=== PATIENT | female | born 1995 | race Caucasian/White ===

== ENCOUNTER 2019-10-31 07:42 | Inpatient (IN) ==
[2019-10-31] MEDS ORDERED: miSOPROStoL 50 MCG TAB PO ONE (10:03)
[2019-10-31] MEDS ORDERED: OXYTOCIN 30 UNITS/500 ML BAG IV PRN (10:03)
--- NOTE | 2019-10-31 10:03 | Obstetrical Progress Note ---
Date of Service October 31, 2019 Assessment & Plan Admission and Anticipated Discharge Date Admission Date: October 31, 2019 Subjective Met pt and Mother Reviewed PNC induction for polyhydramnios FHR; CAT1 Ctx; minimal VE; /-3 EFW by Sherif ; 7-8 Lbs Plan Cytotec PO discussed plan with pt. pt agrees to plan and management Results & Data ([place]) Vital Signs (Past 12 Hours) Vital Signs Temp Pulse Resp BP 10/31/19 09:47 86 140/88 10/31/19 09:32 86 141/87 H 10/31/19 09:17 82 142/85 H 10/31/19 09:01 87 146/94 H 10/31/19 08:16 88 156/91 H 10/31/19 08:09 36.9 C 20
[2019-10-31] MEDS ORDERED: miSOPROStoL 50 MCG TAB PO STA ×2 (10:05→14:55)
[2019-10-31 10:33] LABS: Hematocrit (blood only) 30.9 % (37-47); Hemoglobin 9.8 g/dL (12.0-16.0); Mean Corpuscular Hemoglobin 26.3 pg (25-34); Mean Corpuscular Volume 82.8 fL (80-100); Mean Platelet Volume 10.9 fL (7.4-10.4); Platelet Count 244 K/uL (130-400); RDW Coefficient of Variation 14.6 % (11.5-14.5); RDW Standard Deviation 44.3 fL (36.4-46.3); Red Blood Count 3.73 M/uL (4.2-5.4); White Blood Count 5.51 K/uL (4.8-10.8)
[2019-10-31 10:43] LABS: Mean Corpuscular Hgb Conc 31.7 g/dL (32-36)
[2019-10-31] MEDS ORDERED: PENICILLIN G POTASSIUM 3 MU in DEXTROSE 5% 100 ML IV PRN (13:43)
[2019-10-31] MEDS ORDERED: PENICILLIN G POTASSIUM 6 MU in DEXTROSE 5% 250 ML IV ONE (13:50)
[2019-10-31] MEDS ORDERED: DINOPROSTONE 10 MG INSERT PV ONE (20:00)
--- NOTE | 2019-10-31 20:15 | Obstetrical Progress Note ---
Date of Service October 31, 2019 Assessment & Plan Admission and Anticipated Discharge Date Admission Date: October 31, 2019 Subjective Pt doing well FHR; CAT1 Ctx; Mi4-7 mins. mild VE; 50/-3 Pt received 1 Cytotec this Am Cervidil placed in vagina Results & Data ([facility] [place]) Vital Signs (Past 12 Hours) Vital Signs Temp Pulse Resp BP 10/31/19 19:25 36.8 C 75 18 140/80 10/31/19 15:53 36.6 C 75 20 139/87 10/31/19 11:06 36.7 C 78 20 140/89 10/31/19 10:01 87 133/84 10/31/19 09:47 86 140/88 10/31/19 09:32 86 141/87 H 10/31/19 09:17 82 142/85 H 10/31/19 09:01 87 146/94 H 10/31/19 08:16 88 156/91 H
[2019-10-31] MEDS ORDERED: miSOPROStoL 50 MCG TAB PV SCH (21:00)
[2019-11-01] MEDS ORDERED: BUTORPHANOL TARTRATE 1 MG/ML VIAL IV PRN (01:26)
[2019-11-01] MEDS ORDERED: BUTORPHANOL TARTRATE 1 MG/ML VIAL ONE (01:27)
[2019-11-01] MEDS: LACTATED RINGER'S 1,000 ML IV PRN ×2 (02:41→06:08)
[2019-11-01] MEDS ORDERED: fentaNYL citrate 100 MCG/2 ML VIAL ONE (02:47)
[2019-11-01] MEDS ORDERED: ePHEDrine sulfate 50 MG/ML AMP ONE (02:47)
[2019-11-01] MEDS ORDERED: BUPIVACAINE 0.25% 30 ML VIAL ONE (02:47)
[2019-11-01] MEDS ORDERED: fentaNYL 2MCG/ML ROPIV 1.25MG/ML 100 ML BAG EPI ONE (02:47)
--- NOTE | 2019-11-01 03:45 | Anesthesiology Consultation ---
Date of Service November 01, 2019 Assessment & Plan Chart Review Chart Review: Acceptable Risk for Labor Epidural Consults Requested none History Height/Weight Height: 5 ft 3 in Weight: 85.275 kg Allergies Allergy/AdvReac Type Severity Reaction Status Date / Time No Known Allergies Allergy Verified 10/31/19 08:04 Medications Home Medications Medication Instructions Recorded Confirmed Last Taken PNV cmb#95-ferrous fumarate-FA 1 tab PO DAILY 10/31/19 10/31/19 10/31/19 [] albuterol sulfate [Ventolin HFA] 1 inh INHALATION QID PRN 10/31/19 10/31/19 Unknown budesonide 1 inh INHALATION BID 10/31/19 10/31/19 Unknown famotidine [Pepcid] 20 mg PO DAILY 10/31/19 10/31/19 10/30/19 Active Medications Generic Name Dose Route Start Last Admin Trade Name Freq PRN Reason Stop Dose Admin Lactated Ringer's 1,000 mls @ 125 mls/hr 10/31/19 10:03 11/01/19 03:15 Lr IV 11/02/19 10:02 125 mls/hr .Q8H PRN Infusion L&D Protocol Protocol Misoprostol 50 mcg 10/31/19 21:00 11/01/19 03:32 Cytotec PV 11/30/19 20:59 Not Given BID MAG Past Medical History Medical History Asthma Use Albuterol and Plumicort Fibromyalgia No medications and no problems with it. Polyhydramnios Current RSV (respiratory syncytial virus infection) As a baby Past Family History Family History Grandmother Breast cancer Leukemia Grandmother (Paternal) Breast cancer Past Surgical History Surgical History No history of previous surgery Social History Smoking Status: Never smoker Hx Alcohol Use: No Hx Substance Use: No Physical Exam Vital Signs Last Vital Signs Temp 36.8 C 11/01/19 03:29 Pulse 85 11/01/19 03:41 Resp 18 11/01/19 03:29 BP 143/82 H 11/01/19 03:41 Pulse Ox 100 07/02/20 03:41 Testing Laboratory Results 10/31/19 10:13
[2019-11-01] MEDS ORDERED: fentaNYL 2MCG/ML ROPIV 1.25MG/ML 100 ML BAG EPI PRN (03:46)
[2019-11-01] MEDS ORDERED: NALOXONE HCL 1 MG in SODIUM CHLORIDE 0.9% 1000ML 1,000 ML IV PRN (03:46)
[2019-11-01] MEDS ORDERED: DiphenhydrAMINE HCL 50 MG/ML VIAL IV PRN (03:46)
[2019-11-01] MEDS ORDERED: ePHEDrine sulfate 50 MG/ML AMP IV PRN (03:46)
[2019-11-01] MEDS ORDERED: NALOXONE HCL 0.4 MG/1 ML VIAL/CARP IV PRN (03:46)
--- NOTE | 2019-11-01 06:15 | Obstetrical Progress Note ---
Date of Service November 01, 2019 Assessment & Plan Admission and Anticipated Discharge Date Admission Date: October 31, 2019 Subjective Pt doing well Epidural analgesia in place FHR; CAT 1 SROM; clear VE; 4/-1 Results & Data ([facility]) Vital Signs (Past 12 Hours) Vital Signs Temp Pulse Resp BP Pulse Ox 11/01/19 06:06 98 H 98 11/01/19 06:01 100 H 98 11/01/19 05:56 103 H 99 11/01/19 05:51 85 98 11/01/19 05:46 105 H 99 11/01/19 05:41 86 141/83 H 98 11/01/19 05:36 85 97 11/01/19 05:31 102 H 98 11/01/19 05:26 87 138/84 98 11/01/19 05:21 87 97 11/01/19 05:16 79 96 11/01/19 05:12 78 131/78 11/01/19 05:11 81 96 11/01/19 05:06 79 96 11/01/19 05:01 81 95 11/01/19 04:56 79 130/71 97 11/01/19 04:51 80 96 11/01/19 04:46 80 95 11/01/19 04:42 79 133/79 11/01/19 04:41 79 96 11/01/19 04:36 79 96 11/01/19 04:31 79 96 11/01/19 04:26 79 127/73 97 11/01/19 04:21 78 96 11/01/19 04:16 82 96 11/01/19 04:11 77 137/81 97 11/01/19 04:06 79 97 11/01/19 04:01 75 99 11/01/19 03:56 77 140/83 97 11/01/19 03:51 75 97 11/01/19 03:46 75 98 11/01/19 03:41 85 143/82 H 100 11/01/19 03:39 84 146/82 H 11/01/19 03:37 90 138/81 11/01/19 03:36 90 100 11/01/19 03:35 81 142/83 H 11/01/19 03:33 78 149/88 H 11/01/19 03:31 85 140/85 100 11/01/19 03:29 36.8 C 85 18 141/83 H 11/01/19 03:26 95 H 100 11/01/19 03:21 82 100 11/01/19 03:16 90 100 11/01/19 03:11 92 H 100 10/31/19 22:23 36.7 C 80 18 118/66 10/31/19 19:25 36.8 C 75 18 140/80
--- NOTE | 2019-11-01 08:15 | Obstetrical Progress Note ---
Date of Service November 01, 2019 Assessment & Plan Admission and Anticipated Discharge Date Admission Date: October 31, 2019 Physical Exam Genitourinary: Manual OB Exam: + cervical dilation 10 cm, + cervical effacement 100%, + station -1 and + amniotic fluid meconium OB Exam Monitor Tracing: + external FHT monitor used, + category I and + normal FHT variability AROM of forebag with amni-hook thin meconium fluid Results & Data ([facility]) Vital Signs (Past 12 Hours) Vital Signs Temp Pulse Resp BP Pulse Ox 11/01/19 08:11 92 H 99 11/01/19 08:06 91 H 97 11/01/19 08:01 90 97 11/01/19 07:59 20 11/01/19 07:56 87 138/77 97 11/01/19 07:51 91 H 99 11/01/19 07:46 112 H 98 11/01/19 07:42 150 H 139/100 11/01/19 07:41 148 H 98 11/01/19 07:36 99 H 98 11/01/19 07:31 92 H 98 11/01/19 07:29 20 11/01/19 07:27 98 H 137/88 11/01/19 07:26 99 H 98 11/01/19 07:21 106 H 98 11/01/19 07:16 103 H 98 11/01/19 07:11 99 H 146/89 H 98 11/01/19 07:10 37.2 C 20 11/01/19 07:06 104 H 98 11/01/19 07:01 98 H 97 11/01/19 06:56 89 140/82 98 11/01/19 06:51 97 H 98 11/01/19 06:46 98 H 98 11/01/19 06:41 94 H 140/84 98 11/01/19 06:36 101 H 98 11/01/19 06:31 91 H 97 11/01/19 06:26 91 H 136/85 97 11/01/19 06:21 90 97 11/01/19 06:16 91 H 97 11/01/19 06:12 93 H 141/86 H 11/01/19 06:11 106 H 98 11/01/19 06:06 98 H 98 11/01/19 06:01 100 H 98 11/01/19 05:56 103 H 99 07/20 05:51 85 98 07/02/20 05:46 105 H 99 07//20 05:41 86 141/83 H 98 07/0220 05:36 85 97 02 05:31 102 H 98 /0220 05:26 87 138/84 98 07/20 05:21 87 97 07/0220 05:16 79 96 0220 05:12 78 131/78 0720 05:11 81 96 07/06/21 05:06 79 96 11/01/19 05:01 81 95 11/01/19 04:56 79 130/71 97 07/0220 04:51 80 96 11/01/19 04:46 80 95 11/01/19 04:42 79 133/79 11/01/19 04:41 79 96 11/01/19 04:36 79 96 11/01/19 04:31 79 96 07 04:26 79 127/73 97 0220 04:21 78 96 11/01/19 04:16 82 96 11/01/19 04:11 77 137/81 97 /06/21 04:06 79 97 07/20 04:01 75 99 07/0220 03:56 77 140/83 97 20 03:51 75 97 /06/21 03:46 75 98 /06/21 03:41 85 143/82 H 100 07/02/20 03:39 84 146/82 H /0220 03:37 90 138/81 07/0220 03:36 90 100 07/0220 03:35 81 142/83 H 07/02/20 03:33 78 149/88 H 07/02/20 03:31 85 140/85 100 07/02/20 03:29 36.8 C 85 18 141/83 H 07/02/20 03:26 95 H 100 07/02/20 03:21 82 100 07/02/20 03:16 90 100 07/02/20 03:11 92 H 100 07/01/20 22:23 36.7 C 80 18 118/66
[2019-11-01] MEDS ORDERED: ONDANSETRON INJ 2 MG/ML 2 ML VIAL IV PRN (08:36)
[2019-11-01] MEDS ORDERED: ONDANSETRON INJ 2 MG/ML 2 ML VIAL ONE (08:39)
--- NOTE | 2019-11-01 11:21 | Delivery Summary ---
Vaginal Delivery Summary Date of Service November 01, 2019 Vaginal Delivery Summary Delivery note live female LEVY over intact perineum with delayed cord clamping. Apgars 8/9 weight pending. cord blood obtained followed by spontaneous delivery of intact placenta. No tears. EBL 200 ml. Final sponge and instrument count are correct. Mom and baby stable.
[2019-11-01] MEDS ORDERED: ALBUTEROL HFA 8 GM INHALER INH PRN (11:39)
[2019-11-01] MEDS ORDERED: DIPHTHERIA/TETANUS/PERTUSSIS 0.5 ML SYR/VIAL IM ONE (11:39)
[2019-11-01] MEDS ORDERED: ACETAMINOPHEN 325 MG TAB PO PRN (11:39)
[2019-11-01] MEDS ORDERED: HYDROCORTISONE ACETATE 25 MG SUPP PR PRN (11:39)
[2019-11-01] MEDS ORDERED: BENZOCAINE 20% AER SPR 82.5 GM CAN EXT PRN (11:39)
[2019-11-01] MEDS ORDERED: SUPERCREAM 0.870% 15 GM JAR EXT PRN (11:39)
[2019-11-01] MEDS ORDERED: bisacodyL 10 MG SUPP PR PRN (11:39)
[2019-11-01] MEDS ORDERED: OXYTOCIN 30 UNITS/500 ML BAG IV PRN (11:39)
--- NOTE | 2019-11-01 11:42 | Obstetrical Progress Note ---
Date of Service November 01, 2019 Assessment & Plan Admission and Anticipated Discharge Date Admission Date: October 31, 2019 Subjective doing fine no bleeding or spotting was out of bed to bathroom and no bleeding noted will plan for discharge and return to L&D tomorrow morning after 7AM for steroids Results & Data ([facility]) Vital Signs (Past 12 Hours) Vital Signs Temp Pulse Resp BP Pulse Ox 11/01/19 11:39 90 149/81 H 11/01/19 11:24 94 H 147/86 H 11/01/19 11:09 93 H 139/87 11/01/19 10:53 155 H 95 11/01/19 10:50 143 H 89 L 11/01/19 10:48 152 H 97 11/01/19 10:44 138 H 85 L 11/01/19 10:43 125 H 96 11/01/19 10:38 127 H 95 11/01/19 10:33 119 H 96 11/01/19 10:29 20 11/01/19 10:28 114 H 96 11/01/19 10:23 102 H 98 11/01/19 10:22 113 H 93 11/01/19 10:18 92 H 95 11/01/19 10:12 111 H 138/68 97 11/01/19 10:07 105 H 99 11/01/19 10:02 97 H 96 11/01/19 10:00 20 11/01/19 09:57 98 H 131/64 99 11/01/19 09:56 119 H 92 11/01/19 09:52 97 H 97 11/01/19 09:47 93 H 98 11/01/19 09:42 104 H 98 11/01/19 09:37 101 H 98 11/01/19 09:31 101 H 98 11/01/19 09:29 20 11/01/19 09:26 103 H 97 11/01/19 09:21 104 H 97 11/01/19 09:16 122 H 98 11/01/19 09:11 114 H 98 11/01/19 09:06 121 H 96 11/01/19 09:01 129 H 96 11/01/19 09:00 36.8 C 20 11/01/19 08:56 94 H 99 11/01/19 08:54 111 H 91 11/01/19 08:51 93 H 98 11/01/19 08:46 78 99 11/01/19 08:43 81 129/72 11/01/19 08:41 86 98 11/01/19 08:36 105 H 97 11/01/19 08:31 92 H 98 11/01/19 08:29 20 11/01/19 08:26 88 138/70 99 11/01/19 08:21 94 H 133/70 99 11/01/19 08:16 90 98 11/01/19 08:11 92 H 99 11/01/19 08:06 91 H 97 11/01/19 08:01 90 97 11/01/19 07:59 20 11/01/19 07:56 87 138/77 97 11/01/19 07:51 91 H 99 11/01/19 07:46 112 H 98 11/01/19 07:42 150 H 139/100 11/01/19 07:41 148 H 98 11/01/19 07:36 99 H 98 11/01/19 07:31 92 H 98 11/01/19 07:29 20 11/01/19 07:27 98 H 137/88 11/01/19 07:26 99 H 98 11/01/19 07:21 106 H 98 11/01/19 07:16 103 H 98 11/01/19 07:11 99 H 146/89 H 98 11/01/19 07:10 37.2 C 20 11/01/19 07:06 104 H 98 11/01/19 07:01 98 H 97 11/01/19 06:56 89 140/82 98 11/01/19 06:51 97 H 98 11/01/19 06:46 98 H 98 11/01/19 06:41 94 H 140/84 98 11/01/19 06:36 101 H 98 11/01/19 06:31 91 H 97 11/01/19 06:26 91 H 136/85 97 11/01/19 06:21 90 97 11/01/19 06:16 91 H 97 11/01/19 06:12 93 H 141/86 H 11/01/19 06:11 106 H 98 11/01/19 06:06 98 H 98 11/01/19 06:01 100 H 98 11/01/19 05:56 103 H 99 11/01/19 05:51 85 98 11/01/19 05:46 105 H 99 11/01/19 05:41 86 141/83 H 98 11/01/19 05:36 85 97 11/01/19 05:31 102 H 98 11/01/19 05:26 87 138/84 98 11/01/19 05:21 87 97 11/01/19 05:16 79 96 11/01/19 05:12 78 131/78 11/01/19 05:11 81 96 11/01/19 05:06 79 96 11/01/19 05:01 81 95 11/01/19 04:56 79 130/71 97 11/01/19 04:51 80 96 11/01/19 04:46 80 95 11/01/19 04:42 79 133/79 11/01/19 04:41 79 96 11/01/19 04:36 79 96 11/01/19 04:31 79 96 11/01/19 04:26 79 127/73 97 11/01/19 04:21 78 96 11/01/19 04:16 82 96 11/01/19 04:11 77 137/81 97 11/01/19 04:06 79 97 11/01/19 04:01 75 99 11/01/19 03:56 77 140/83 97 11/01/19 03:51 75 97 11/01/19 03:46 75 98 11/01/19 03:41 85 143/82 H 100 11/01/19 03:39 84 146/82 H 11/01/19 03:37 90 138/81 11/01/19 03:36 90 100 11/01/19 03:35 81 142/83 H 11/01/19 03:33 78 149/88 H 11/01/19 03:31 85 140/85 100 11/01/19 03:29 36.8 C 85 18 141/83 H 11/01/19 03:26 95 H 100 11/01/19 03:21 82 100 11/01/19 03:16 90 100 11/01/19 03:11 92 H 100 Laboratory Results Laboratory Results - last 72 hr 10/31/19 10:13 WBC 5.51 RBC 3.73 L Hgb 9.8 L Hct 30.9 L MCV 82.8 MCH 26.3 MCHC 31.7 L RDW Std Deviation 44.3 RDW Coeff of [place] 14.6 H Plt Count 244 MPV 10.9 H
--- NOTE | 2019-11-01 13:10 | Anesthesia Procedure Note ---
Date of Service November 01, 2019 Anesthesia Post Epidural Note Vital Signs Vital Signs: Temp Pulse Resp BP Pulse Ox 36.8 C 87 20 131/82 95 11/01/19 09:00 11/01/19 12:54 11/01/19 12:24 11/01/19 12:54 11/01/19 10:53 Notes Mental Status: alert / awake / arousable and participated in evaluation Nausea / Vomiting: adequately controlled Pain: adequately controlled Airway Patency, RR, SpO2: stable & adequate BP & HR: stable & adequate Hydration State: stable & adequate Neuraxial Anesthesia: was administered and sensory block is resolving Anesthetic Complications: no major complications apparent and Pt Satisfied with anesthetic care Epidural: Removed without complications and With tip intact
[2019-11-01] MEDS: IBUPROFEN 600 MG TAB PO PRN ×3 (13:12→21:04)
[2019-11-01] MEDS: DOCUSATE SODIUM 100 MG CAP PO SCH (21:04)
[2019-11-02] MEDS: IBUPROFEN 600 MG TAB PO PRN (04:49)
[2019-11-02 06:17] LABS: Hematocrit (blood only) 28.7 % (37-47); Hemoglobin 9.1 g/dL (12.0-16.0); Mean Corpuscular Hemoglobin 26.5 pg (25-34); Mean Corpuscular Hgb Conc 31.7 g/dL (32-36); Mean Corpuscular Volume 83.4 fL (80-100); Mean Platelet Volume 10.8 fL (7.4-10.4); Platelet Count 200 K/uL (130-400); RDW Coefficient of Variation 14.9 % (11.5-14.5); RDW Standard Deviation 45.1 fL (36.4-46.3); Red Blood Count 3.44 M/uL (4.2-5.4); White Blood Count 8.54 K/uL (4.8-10.8)
[2019-11-02] MEDS: DOCUSATE SODIUM 100 MG CAP PO SCH (07:30)
[2019-11-02] MEDS ORDERED: PRENATAL VITAMIN 1 TAB PO SCH (08:00)
[2019-11-02] MEDS ORDERED: FERROUS SULFATE 325 MG TAB PO SCH (08:00)
--- NOTE | 2019-11-02 08:06 | Obstetrical Progress Note ---
Date of Service November 02, 2019 Assessment & Plan Admission and Anticipated Discharge Date Admission Date: October 31, 2019 Subjective Patient is seen and examined. She feels well, no complaints. Ambulating without dizziness Voiding without difficulty Tolerating regular diet with out N&V Bleeding is minimal No fever/ chills/ CP/ SOB/ N&V/ Leg pain Bottle feeding without problems Vital Signs Temp Pulse Resp BP Pulse Ox 11/02/19 04:10 36.5 C 88 14 130/85 98 11/02/19 00:35 36.6 C 81 14 120/59 L 98 Lab Results 10/31/19 11/02/19 Range/Units 10:13 06:01 WBC 5.51 8.54 (4.8-10.8) K/uL RBC 3.73 L 3.44 L (4.2-5.4) M/uL Hgb 9.8 L 9.1 L (12.0-16.0) g/dL Hct 30.9 L 28.7 L (37-47) % MCV 82.8 83.4 (80-100) fL MCH 26.3 26.5 (25-34) pg MCHC 31.7 L 31.7 L (32-36) g/dL RDW Std Deviation 44.3 45.1 (36.4-46.3) fL RDW Coeff of [place] 14.6 H 14.9 H (11.5-14.5) % Plt Count 244 200 (130-400) K/uL MPV 10.9 H 10.8 H (7.4-10.4) fL PE: General: Alert, orientedx3, NAD Abd: soft, NT, fundus firm, below Umbilicus Perineum intact, Lochia rubra minimal Ext; NT, no edema AP: 23 yo s/p , ppd# 1 VSS Afebrile doing well Continue routine care All questions were answered D/C home tomorrow Results & Data ([facility]) Vital Signs (Past 12 Hours) Vital Signs Temp Pulse Resp BP Pulse Ox 11/02/19 04:10 36.5 C 88 14 130/85 98 11/02/19 00:35 36.6 C 81 14 120/59 L 98
[2019-11-02] MEDS ORDERED: FAMOTIDINE 20 MG TAB PO SCH (09:00)
[2019-11-02] MEDS ORDERED: FLUTICASONE FUROATE 100MCG 14 PUFFS/INHALER INH SCH (09:00)
[2019-11-02] MEDS ORDERED: NON-FORMULARY MEDICATION (Pnv Cmb#95-Ferrous Fumarate-Fa [Prenatal] 1 TAB) PO SCH (09:00)
--- NOTE | 2019-11-02 11:58 | Obstetrical Progress Note ---
Date of Service November 02, 2019 Assessment & Plan Admission and Anticipated Discharge Date Admission Date: October 31, 2019 Subjective Patient desires to be discharged today. No complaints Discussed when to call All questions were answered Results & Data ([facility]) Vital Signs (Past 12 Hours) Vital Signs Temp Pulse Resp BP Pulse Ox 11/02/19 07:35 36.6 C 73 18 135/91 98 11/02/19 04:10 36.5 C 88 14 130/85 98 11/02/19 00:35 36.6 C 81 14 120/59 L 98
[2019-11-02] MEDS ORDERED: bisacodyL 5 MG TABEC PO SCH (20:00)
== END 2019-11-02 13:45 | disposition home or self-care (01) | DRG 807 ==
LOC: 4S1 07:42 → 4S2 11-01 15:15

== ENCOUNTER 2022-04-12 12:50 | Inpatient (IN) ==
[2022-04-12] MEDS ORDERED: DINOPROSTONE 10 MG INSERT PV ONE (14:18)
[2022-04-12] MEDS ORDERED: LIDOCAINE 1% LOCAL 20 ML VIAL INFIL PRN (14:18)
[2022-04-12] MEDS ORDERED: OXYTOCIN 30 UNITS/500 ML BAG IV PRN (14:18)
[2022-04-12] MEDS ORDERED: PENICILLIN G POTASSIUM 6 MU in DEXTROSE 5% 250 ML IV STA (14:18)
[2022-04-12 15:34] LABS: Hematocrit (blood only) 33.9 % (34.1-44.9); Hemoglobin 11.2 g/dl (12.0-16.0); Mean Corpuscular Hemoglobin 27.8 pg (25.0-34.0); Mean Corpuscular Volume 84.1 fL (80.0-100.0); Mean Platelet Volume 11.3 fL (9.4-12.3); Platelet Count 249 K/uL (130-400); RDW Coefficient of Variation 12.8 % (11.5-14.5); RDW Standard Deviation 38.6 fL (36.4-46.3); Red Blood Count 4.03 M/uL (3.93-5.22); White Blood Count 8.25 K/ul (4.8-10.8)
[2022-04-12] MEDS ORDERED: BUTORPHANOL TARTRATE 1 MG/ML VIAL IV PRN (15:41)
[2022-04-12 15:44] LABS: Albumin Globulin Ratio 1.1 (0.9-2); Albumin Level 3.5 gm/dl (3.4-5.0); Bilirubin,Total 0.3 mg/dl (0.2-1.0); Calcium 8.2 mg/dl (8.5-10.1); Creatinine Clr Calc Pharmacy 140.9 ml/min; Est GFR (African American) 146.8 ml/min; Est GFR (Non-African American) 126.7 ml/min; Globulin 3.3 gm/dl (2.5-4.0); Potassium 3.9 mmol/L (3.5-5.1); Total Protein 6.8 gm/dl (6.0-8.3)
--- NOTE | 2022-04-12 15:48 | History & Physical Report ---
Date of Service April 12, 2022 Assessment & Plan (1) Elective induction of labor planned: (2) Post-term , 40-42 weeks of gestation: Plan: 26-year-old -0-1-1 at 40 weeks and 2 days of gestation presenting today for induction of labor, Vital signs stable, heart rate reassuring, GBS positive, Cervix unfavorable Plan to admit, monitor, labs, cervical ripening with Cervidil, Discussed what to expect during induction of labor, pain management during labor, Stadol for pain and early labor and then epidural when patient desires. All questions were answered. (3) Asthma affecting in third trimester: Admission and Anticipated Discharge Date Admission Date: April 12, 2022 History of Present Illness Primary Care Provider: Maribell Marcano DO Patient is a 26-year-old -0-1-1 at 40 weeks and 2 days of gestation who is presenting today for induction of labor for postdates. She has no complaints. She denies contractions, leakage of fluid, vaginal bleeding, headaches, change in vision, nausea vomiting. She reports good movements. Her has been complicated by, 1. Asthma during , uses inhaler daily and as needed, 2. GBS positive, 3. Depression during Allergies Allergy/AdvReac Type Severity Reaction Status Date / Time No Known Allergies Allergy Verified 10/31/19 08:04 Home Medications Medication Instructions Recorded Confirmed Type albuterol sulfate 90 mcg/actuation 1 inh inhalation QID PRN Asthma 10/31/19 04/12/22 History aerosol inhaler (Ventolin HFA) budesonide 90 mcg/actuation breath 1 inh inhalation BID 10/31/19 04/12/22 History activated powder inhaler famotidine 20 mg tablet (Pepcid) 20 mg PO DAILY 10/31/19 04/12/22 History vit no.95-ferrous 1 tab PO DAILY 10/31/19 04/12/22 History fumarate 28 mg-folic acid 800 mcg tablet () ferrous sulfate 325 mg (65 mg 325 mg PO DAILY 04/12/22 04/12/22 History iron) tablet (Iron (ferrous sulfate)) sertraline 50 mg tablet (Zoloft) 50 mg PO DAILY 04/12/22 04/12/22 History Patient History Medical History Anemia Taking Iron Anxiety and depression Zoloft 50mg Asthma Use Albuterol and Plumicort COVID January 2021 Fibromyalgia No medications and no problems with it. 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[employer] - [employer] Other Information That Helps Us Care for You: No Feels Safe at Home: Yes Safety Concerns: Feels Safe At This Time Seatbelt Use: always Assistive Devices: None OB History Full-term in 2019, 7 pound 14 ounces, no complications [employer] MACHINE History No history of STDs, no history of genital herpes, chlamydia, gonorrhea Review of Systems as per Subjective / HPI Physical Exam Constitutional: WD/WN, vitals as above well developed, + well hydrated and comfortable Gastrointestinal (Abdomen): normal bowel sounds, soft, nontender, no hepatosplenomegaly (Gravid) Genitourinary: normal external appearance OB Exam Abdomen: + vertex Manual OB Exam: + cervical dilation 1 cm, + cervical effacement 30% and + station high OB Exam Monitor Tracing: + external uterine monitor used and + category I Results & Data ([place]) Vital Signs (Past 12 Hours) Vital Signs Temp Pulse Resp BP 04/12/22 13:20 36.8 C 20 04/12/22 14:39 36.9 C 93 H 20 135/86 04/12/22 13:08 93 H 142/83 H Laboratory Results Lab Results 04/12/22 04/12/22 04/12/22 Range/Units 13:11 14:02 14:02 WBC 8.25 (4.8-10.8) K/ul RBC 4.03 (3.93-5.22) M/uL Hgb 11.2 L (12.0-16.0) g/dl Hct 33.9 L (34.1-44.9) % MCV 84.1 (80.0-100.0) fL MCH 27.8 (25.0-34.0) pg MCHC 33.0 (32.0-36.0) g/dL RDW Std Deviation 38.6 (36.4-46.3) fL RDW Coeff of [place] 12.8 (11.5-14.5) % Plt Count 249 (130-400) K/uL MPV 11.3 (9.4-12.3) fL Sodium 135 L (136-145) mmol/L Potassium 3.9 (3.5-5.1) mmol/L Chloride 105 (98-107) mmol/L Carbon Dioxide 20 L (21-32) mmol/L Anion Gap 10 (3-11) BUN 9 (6-23) mg/dl Creatinine 0.60 (0.6-1.2) mg/dl Est Cr Clr Drug Dosing 140.9 ml/min Est GFR ( Amer) 146.8 ml/min Est GFR (Non-Af Amer) 126.7 ml/min BUN/Creatinine Ratio 15.0 (10-20) Glucose 83 (70-99(Fasting)) mg/dl Calcium 8.2 L (8.5-10.1) mg/dl Total Bilirubin 0.3 (0.2-1.0) mg/dl AST 33 (13-39) U/L ALT 21 (7-52) U/L Alkaline Phosphatase 213 H (34-104) U/L Total Protein 6.8 (6.0-8.3) gm/dl Albumin 3.5 (3.4-5.0) gm/dl Globulin 3.3 (2.5-4.0) gm/dl Albumin/Globulin Ratio 1.1 (0.9-2) SARS-CoV-2, RNA, NAAT NEGATIVE (NEGATIVE)
[2022-04-12] MEDS ORDERED: PENICILLIN G POTASSIUM 3 MU in DEXTROSE 5% 100 ML IV PRN (17:18)
[2022-04-12] MEDS: LACTATED RINGER'S 1,000 ML IV PRN (20:51)
[2022-04-12] MEDS ORDERED: ePHEDrine sulfate 50 MG/ML AMP ONE (23:04)
[2022-04-12] MEDS ORDERED: fentaNYL citrate 100 MCG/2 ML VIAL ONE (23:05)
[2022-04-12] MEDS ORDERED: SODIUM CHLORIDE 0.9% INJ 10 ML VIAL ONE (23:05)
[2022-04-12] MEDS ORDERED: LIDOCAINE 2%/EPINEPHRINE 1:200,000 20 ML SDV ONE (23:05)
[2022-04-12] MEDS ORDERED: BUPIVACAINE 0.25% 30 ML VIAL ONE (23:05)
[2022-04-12] MEDS ORDERED: fentaNYL 2MCG/ML ROPIVACAINE 1.25MG/ML 100 ML BAG EPI ONE (23:06)
--- NOTE | 2022-04-12 23:26 | Obstetrical Progress Note ---
Date of Service April 12, 2022 Assessment & Plan Admission and Anticipated Discharge Date Admission Date: April 12, 2022 Subjective Patient suddenly got painful for the last 1/2 hour or so. Desires epidural for pain No VB/ LOF VSS Afebrile FHR categ I VE; 5/ 90%/ -2, large bulging bag, Cervidil is removed Continue to monitor closely Epidural for pain Results & Data ([facility]) Vital Signs (Past 12 Hours) Vital Signs Temp Pulse Resp BP Pulse Ox 04/12/22 13:20 36.8 C 20 04/12/22 23:19 92 H 100 04/12/22 23:14 102 H 98 04/12/22 23:09 95 H 99 04/12/22 23:04 95 H 99 04/12/22 23:05 100 H 92 04/12/22 22:42 100 H 130/64 04/12/22 19:00 18 04/12/22 19:00 36.7 C 18 04/12/22 19:04 102 H 131/78 04/12/22 14:39 36.9 C 93 H 20 135/86 04/12/22 13:08 93 H 142/83 H
--- NOTE | 2022-04-12 23:31 | Anesthesiology Consultation ---
Date of Service April 12, 2022 Assessment & Plan Chart Review Chart Review: Acceptable Risk for Surgery and Acceptable Risk for Labor Epidural Consults Requested none ASA ASA2 Proposed Anesthesia Anesthesia Type: Labor Epidural Risk / Benefits Reviewed With: PT / POA / Parent / Guardian, Accepts Plan and Informed Consent Obtained History Height/Weight Height: 5 ft 3 in Weight: 77.111 kg Allergies Allergy/AdvReac Type Severity Reaction Status Date / Time No Known Allergies Allergy Verified 10/31/19 08:04 Medications Home Medications Medication Instructions Recorded Confirmed Last Taken albuterol sulfate 90 mcg/actuation 1 inh inhalation QID PRN Asthma 10/31/19 04/12/22 04/11/22 aerosol inhaler (Ventolin HFA) budesonide 90 mcg/actuation breath 1 inh inhalation BID 10/31/19 04/12/22 04/11/22 activated powder inhaler famotidine 20 mg tablet (Pepcid) 20 mg PO DAILY 10/31/19 04/12/22 04/09/22 vit no.95-ferrous 1 tab PO DAILY 10/31/19 04/12/22 04/11/22 fumarate 28 mg-folic acid 800 mcg tablet () ferrous sulfate 325 mg (65 mg 325 mg PO DAILY 04/12/22 04/12/22 04/10/22 iron) tablet (Iron (ferrous sulfate)) sertraline 50 mg tablet (Zoloft) 50 mg PO DAILY 04/12/22 04/12/22 04/10/22 Active Medications Generic Name Dose Route Start Last Admin Trade Name Freq PRN Reason Stop Dose Admin Butorphanol Tartrate 1 mg 04/12/22 15:41 04/12/22 20:53 Butorphanol Tartrate 1 Mg/Ml Vial IV 05/12/22 15:40 1 mg Q3HWA PRN Administration Pain Lactated Ringer's 1,000 mls @ 150 mls/hr 04/12/22 14:18 04/12/22 23:00 Lr IV 04/14/22 14:17 999 mls/hr .[id number] PRN Infusion L&D Protocol Protocol NPO Date Last Intake of Fluids: 04/12/22 Time Last Intake of Fluids: 23:00 Date Last Intake of Solids: 04/12/22 Time Last Intake of Solids: 11:30 Past Medical History Medical History Anemia Taking Iron Anxiety and depression Zoloft 50mg Asthma Use Albuterol and Plumicort COVID January 2021 Fibromyalgia No medications and no problems with it. Patient denies Polyhydramnios previous RSV (respiratory syncytial virus infection) As a baby Vitamin B 12 deficiency Exercise / Class Metabolic Activity II 4-5 Yardwork/Stairs/Walk up hill Past Family History Family History Grandmother Breast cancer Leukemia Grandmother (Paternal) Breast cancer Past Surgical History Surgical History No history of previous surgery Past Anesthesia History No Hx of Anesthesia Complications and No Family Hx of Anesthesia Complications History of PONV No Hx of PONV and No Hx of Motion Sickness Social History Smoking Status: Never smoker Hx Alcohol Use: No Hx Substance Use: No Physical Exam Vital Signs Last Vital Signs Temp 36.7 C 04/12/22 19:00 Pulse 91 H 04/12/22 23:24 Resp 18 04/12/22 19:00 BP 130/64 04/12/22 22:42 Pulse Ox 99 04/12/22 23:24 ENMT Mouth: + small oral opening; no TMJ abnormality Thyromental Distance: > or= 3.5 Finger Breadths Mallampati Class: III Neck normal visual inspection and trachea midline; neck extension not limited Respiratory normal respiratory effort Auscultation: lungs clear to auscultation bilaterally Cardiovascular Rate/Rhythm: regular rate and regular rhythm Heart Sounds: no murmur Musculoskeletal Spine: normal cervical ROM Extremities: full ROM of extremities Neurologic moves all extremities Psychiatric Orientation: alert and oriented x 3 Testing Laboratory Results 04/12/22 14:02 04/12/22 14:02
[2022-04-12] MEDS ORDERED: NALOXONE HCL 1 MG in SODIUM CHLORIDE 0.9% 1000ML 1,000 ML IV PRN (23:52)
[2022-04-12] MEDS ORDERED: ePHEDrine sulfate 50 MG/ML AMP IV PRN (23:52)
[2022-04-12] MEDS ORDERED: NALBUPHINE HCL INJ 10 MG/ML AMP IV PRN (23:52)
[2022-04-12] MEDS ORDERED: ONDANSETRON INJ 2 MG/ML 2 ML VIAL IV PRN (23:52)
[2022-04-12] MEDS ORDERED: NALOXONE HCL 0.4 MG/1 ML VIAL/CARP IV PRN (23:52)
[2022-04-12] MEDS ORDERED: fentaNYL 2MCG/ML ROPIVACAINE 1.25MG/ML 100 ML BAG EPI PRN (23:52)
[2022-04-12] MEDS ORDERED: diphenhydrAMINE 50 MG/ML VIAL IV PRN (23:52)
[2022-04-12] MEDS ORDERED: METOCLOPRAMIDE HCL 20 MG in SODIUM CHLORIDE 0.9% 50 ML IV PRN (23:52)
[2022-04-13] MEDS: LACTATED RINGER'S 1,000 ML IV PRN (00:25)
--- NOTE | 2022-04-13 01:25 | Obstetrical Progress Note ---
Date of Service April 13, 2022 Assessment & Plan Admission and Anticipated Discharge Date Admission Date: April 12, 2022 Subjective Patient is comfortable now, received epidural for pain 2ND dose of PCN has been given VE; large bulging bag, AROM'ed clear fluid, cervix 10/ 100%/ 0, LOP FHR categ I with short lasting variable decels with ctxs, moderate variability and accels present Continue to monitor closely Rt lateral position to hlep for internal rotation of head Anticipe Results & Data ([facility]) Vital Signs (Past 12 Hours) Vital Signs Temp Pulse Resp BP Pulse Ox 04/13/22 01:19 96 H 98 04/13/22 01:14 77 96 04/13/22 01:12 77 110/58 L 94 04/13/22 01:09 78 97 04/13/22 01:04 106 H 98 04/13/22 01:00 18 04/13/22 01:00 18 04/13/22 00:59 91 H 96 04/13/22 00:57 97 H 130/64 04/13/22 00:54 87 96 04/13/22 00:49 111 H 96 04/13/22 00:44 91 H 97 04/13/22 00:42 88 121/71 04/13/22 00:30 18 04/13/22 00:30 18 04/13/22 00:39 92 H 98 04/13/22 00:34 89 98 04/13/22 00:29 99 H 98 04/13/22 00:24 96 H 98 04/13/22 00:23 92 H 128/73 04/13/22 00:19 84 126/86 97 04/13/22 00:14 85 121/69 98 04/13/22 00:00 18 04/13/22 00:00 18 04/13/22 00:09 86 98 04/13/22 00:08 85 134/73 04/13/22 00:04 98 04/13/22 00:04 88 04/13/22 00:04 89 132/82 04/12/22 23:59 93 H 136/76 97 04/12/22 23:54 88 98 04/12/22 23:53 92 H 126/66 04/12/22 23:51 89 119/62 04/12/22 23:49 94 H 129/63 96 04/12/22 23:47 91 H 120/60 04/12/22 23:45 94 H 18 130/74 04/12/22 23:44 90 97 04/12/22 23:39 88 97 04/12/22 23:34 107 H 98 04/12/22 23:29 92 H 99 04/12/22 23:24 91 H 99 04/12/22 23:19 92 H 100 04/12/22 23:14 102 H 98 04/12/22 23:09 95 H 99 04/12/22 23:04 95 H 99 04/12/22 23:05 100 H 92 04/12/22 22:42 100 H 130/64 04/12/22 19:00 18 04/12/22 19:00 36.7 C 18 04/12/22 19:04 102 H 131/78 04/12/22 14:39 36.9 C 93 H 20 135/86
[2022-04-13] MEDS ORDERED: ALBUTEROL HFA 8 GM INHALER INH PRN (01:47)
[2022-04-13] MEDS ORDERED: OXYTOCIN 30 UNITS/500 ML BAG IV PRN ×2 (02:03→03:30)
[2022-04-13] MEDS ORDERED: HYDROCORTISONE ACETATE 25 MG SUPP PR PRN (03:30)
[2022-04-13] MEDS ORDERED: bisacodyL 10 MG SUPP PR PRN (03:30)
[2022-04-13] MEDS ORDERED: BENZOCAINE 20% AER SPR 82.5 GM CAN EXT PRN (03:30)
[2022-04-13] MEDS ORDERED: DIPHTHERIA/TETANUS/PERTUSSIS 0.5 ML SYR/VIAL IM ONE (03:30)
[2022-04-13] MEDS ORDERED: ACETAMINOPHEN 325 MG TAB PO PRN (03:30)
--- NOTE | 2022-04-13 07:33 | Delivery Summary ---
Vaginal Delivery Summary Date of Service April 13, 2022 Vaginal Delivery Summary Late entry due to [place] being in progress. Patient was found to be fully dilated and desire to push. She pushed for about 20 minutes and delivered the head without difficulty. Unable to deliver ant erior/right shoulder with minimal traction. Nursing team was notified for shoulder dystocia. Patient's thighs were hyperflexed with Candis maneuver and suprapubic pressure I was able to deliver posterior/left shoulder without difficulty. There was a nuchal and body cord it was reduced and the baby was handed off to the mother. The time between delivery head and the whole body was less than 1 minutes. The mouth and nose were suctioned. The cord was clamped times and cut. Baby was vigorously moving and crying. And then the vagina perineum were checked for lacerations. There was a small first-degree laceration at 5 position at the hymen. It was repaired with 3-0 Vicryl and excellent hemostasis was achieved. Placenta was found to be in the vagina, delivered spontaneously as intact and complete. Uterus was explored and found to be empty, lower segment was cleared of all clots and debris's, fundus was firm and EBL was 200 mm. Mom and baby tolerated procedure well. Baby was a viable male infant, delivered at 0 2:15 AM, Apgars were 7/9, the weight was 377 8 g. The sponge needle instrument count was correct x2. No complications happened other than mild shoulder dystocia. I was present during whole procedure.
[2022-04-13] MEDS ORDERED: PRENATAL VITAMIN 1 TAB PO SCH (08:00)
[2022-04-13] MEDS: PRENATAL VITAMIN 1 TAB PO SCH (08:58)
[2022-04-13] MEDS: FERROUS SULFATE 325 MG TAB PO SCH (08:58)
[2022-04-13] MEDS: FAMOTIDINE 20 MG TAB PO SCH (08:58)
[2022-04-13] MEDS: DOCUSATE SODIUM 100 MG CAP PO SCH ×2 (08:58→21:12)
[2022-04-13] MEDS: SERTRALINE HCL 50 MG TABLET PO SCH (08:59)
[2022-04-13] MEDS: FLUTICASONE FUROATE 200MCG 14 PUFFS/INHALER INH SCH (09:00)
[2022-04-13] MEDS: IBUPROFEN 600 MG TAB PO PRN ×2 (09:02→15:55)
--- NOTE | 2022-04-13 09:53 | Anesthesia Procedure Note ---
Date of Service April 13, 2022 Anesthesia Post Epidural Note Vital Signs Vital Signs: Temp Pulse Resp BP Pulse Ox O2 Del Method 98.1 F 91 H 18 136/87 97 04/13/22 07:30 04/13/22 07:30 04/13/22 07:30 04/13/22 07:30 04/13/22 07:30 04/13/22 07:30 Pain Intensity Bilateral Abdomen: Pain Intensity: 5 Notes Mental Status: alert / awake / arousable and participated in evaluation Nausea / Vomiting: adequately controlled Pain: adequately controlled Airway Patency, RR, SpO2: stable & adequate BP & HR: stable & adequate Hydration State: stable & adequate Neuraxial Anesthesia: was administered and sensory block is resolving Anesthetic Complications: no major complications apparent and Pt Satisfied with anesthetic care Epidural: Removed without complications and With tip intact
[2022-04-14] MEDS: IBUPROFEN 600 MG TAB PO PRN ×2 (01:18→08:06)
[2022-04-14 07:22] LABS: Hematocrit (blood only) 32.5 % (34.1-44.9); Hemoglobin 10.5 g/dl (12.0-16.0); Mean Corpuscular Hemoglobin 27.6 pg (25.0-34.0); Mean Corpuscular Hgb Conc 32.3 g/dL (32.0-36.0); Mean Corpuscular Volume 85.5 fL (80.0-100.0); Mean Platelet Volume 10.6 fL (9.4-12.3); Platelet Count 206 K/uL (130-400); RDW Standard Deviation 39.9 fL (36.4-46.3); White Blood Count 7.29 K/ul (4.8-10.8)
[2022-04-14] MEDS: FERROUS SULFATE 325 MG TAB PO SCH (08:06)
[2022-04-14] MEDS: DOCUSATE SODIUM 100 MG CAP PO SCH (08:06)
[2022-04-14] MEDS: PRENATAL VITAMIN 1 TAB PO SCH (08:06)
[2022-04-14] MEDS: FAMOTIDINE 20 MG TAB PO SCH (08:06)
[2022-04-14] MEDS: FLUTICASONE FUROATE 200MCG 14 PUFFS/INHALER INH SCH (08:08)
[2022-04-14] MEDS: SERTRALINE HCL 50 MG TABLET PO SCH (08:51)
--- NOTE | 2022-04-14 09:08 | Obstetrical Progress Note ---
Date of Service April 14, 2022 Assessment & Plan Admission and Anticipated Discharge Date Admission Date: April 12, 2022 Subjective Patient is seen and examined. She feels well, no complaints. Ambulating without dizziness Voiding without difficulty Tolerating regular diet with out N&V Bleeding is minimal No fever/ chills/ CP/ SOB/ N&V/ Leg pain Breast feeding without problems Vital Signs Temp Pulse Resp BP Pulse Ox O2 Del Method 04/14/22 08:10 37 C 75 20 126/83 96 Room Air 04/13/22 23:30 36.5 C 76 18 119/74 Room Air Lab Results 04/12/22 04/12/22 04/12/22 Range/Units 13:11 14:02 14:02 WBC 8.25 (4.8-10.8) K/ul RBC 4.03 (3.93-5.22) M/uL Hgb 11.2 L (12.0-16.0) g/dl Hct 33.9 L (34.1-44.9) % MCV 84.1 (80.0-100.0) fL MCH 27.8 (25.0-34.0) pg MCHC 33.0 (32.0-36.0) g/dL RDW Std Deviation 38.6 (36.4-46.3) fL RDW Coeff of [place] 12.8 (11.5-14.5) % Plt Count 249 (130-400) K/uL MPV 11.3 (9.4-12.3) fL Sodium 135 L (136-145) mmol/L Potassium 3.9 (3.5-5.1) mmol/L Chloride 105 (98-107) mmol/L Carbon Dioxide 20 L (21-32) mmol/L Anion Gap 10 (3-11) BUN 9 (6-23) mg/dl Creatinine 0.60 (0.6-1.2) mg/dl Est Cr Clr Drug Dosing 140.9 ml/min Est GFR ( Amer) 146.8 ml/min Est GFR (Non-Af Amer) 126.7 ml/min BUN/Creatinine Ratio 15.0 (10-20) Glucose 83 (70-99(Fasting)) mg/dl Calcium 8.2 L (8.5-10.1) mg/dl Total Bilirubin 0.3 (0.2-1.0) mg/dl AST 33 (13-39) U/L ALT 21 (7-52) U/L Alkaline Phosphatase 213 H (34-104) U/L Total Protein 6.8 (6.0-8.3) gm/dl Albumin 3.5 (3.4-5.0) gm/dl Globulin 3.3 (2.5-4.0) gm/dl Albumin/Globulin Ratio 1.1 (0.9-2) SARS-CoV-2, RNA, NAAT NEGATIVE (NEGATIVE) 04/14/22 Range/Units 06:56 WBC 7.29 (4.8-10.8) K/ul RBC 3.80 L (3.93-5.22) M/uL Hgb 10.5 L (12.0-16.0) g/dl Hct 32.5 L (34.1-44.9) % MCV 85.5 (80.0-100.0) fL MCH 27.6 (25.0-34.0) pg MCHC 32.3 (32.0-36.0) g/dL RDW Std Deviation 39.9 (36.4-46.3) fL RDW Coeff of [place] 13.0 (11.5-14.5) % Plt Count 206 (130-400) K/uL MPV 10.6 (9.4-12.3) fL Sodium (136-145) mmol/L Potassium (3.5-5.1) mmol/L Chloride (98-107) mmol/L Carbon Dioxide (21-32) mmol/L Anion Gap (3-11) BUN (6-23) mg/dl Creatinine (0.6-1.2) mg/dl Est Cr Clr Drug Dosing ml/min Est GFR ( Amer) ml/min Est GFR (Non-Af Amer) ml/min BUN/Creatinine Ratio (10-20) Glucose (70-99(Fasting)) mg/dl Calcium (8.5-10.1) mg/dl Total Bilirubin (0.2-1.0) mg/dl AST (13-39) U/L ALT (7-52) U/L Alkaline Phosphatase (34-104) U/L Total Protein (6.0-8.3) gm/dl Albumin (3.4-5.0) gm/dl Globulin (2.5-4.0) gm/dl Albumin/Globulin Ratio (0.9-2) SARS-CoV-2, RNA, NAAT (NEGATIVE) PE: General: Alert, orientedx3, NAD Abd: soft, NT, fundus firm, below Umbilicus Perineum intact, Lochia rubra minimal Ext; NT, no edema AP: 26 yo s/p , ppd# 1 VSS Afebrile doing well Continue routine care All questions were answered Desires d/c today D/C home , f/u in office Results & Data ([facility]) Vital Signs (Past 12 Hours) Vital Signs Temp Pulse Resp BP Pulse Ox O2 Del Method 04/14/22 08:10 37 C 75 20 126/83 96 Room Air 04/13/22 23:30 36.5 C 76 18 119/74 Room Air
[2022-04-14] MEDS ORDERED: bisacodyL 5 MG TABEC PO SCH (20:00)
== END 2022-04-14 13:35 | disposition home or self-care (01) | DRG 807 ==
LOC: 4S1 12:50 → 4E2 04-13 05:32

== ENCOUNTER 2025-02-18 07:48 | Inpatient (IN) ==
[2025-02-18] MEDS ORDERED: ACETAMINOPHEN 325 MG TAB PO PRN ×2 (08:29→22:58)
[2025-02-18] MEDS ORDERED: OXYTOCIN 30 UNITS/NSS 30 UNITS/500 ML BAG IV PRN ×2 (08:29→22:58)
[2025-02-18] MEDS ORDERED: LIDOCAINE 1% LOCAL 20 ML VIAL INFIL PRN (08:29)
[2025-02-18 09:03] LABS: Hematocrit (blood only) 34.8 % (37.0-47.0); Hemoglobin 11.9 g/dl (12.0-16.0); Mean Corpuscular Hemoglobin 29.8 pg (25.0-34.0); Mean Corpuscular Volume 87.2 fL (80.0-100.0); Platelet Count 190 K/uL (130-400); RDW Standard Deviation 42.5 fL (36.4-46.3); Red Blood Count 3.99 M/uL (4.20-5.40); White Blood Count 6.77 K/ul (4.8-10.8)
[2025-02-18] MEDS: LACTATED RINGER'S 1,000 ML IV PRN (09:06)
[2025-02-18] MEDS: miSOPROStoL 50 MCG TAB PO ONE ×2 (09:10→13:50)
[2025-02-18] MEDS ORDERED: NALOXONE HCL 0.4 MG/1 ML VIAL/CARP IV PRN (18:13)
[2025-02-18] MEDS ORDERED: NALBUPHINE HCL INJ 10 MG/ML AMP IV PRN (18:13)
[2025-02-18] MEDS ORDERED: ROPIVACAINE 0.5% PF 5 MG/ML 20 ML VIAL EPI PRN (18:13)
[2025-02-18] MEDS ORDERED: NALOXONE HCL 1 MG in SODIUM CHLORIDE 0.9% 1,000 ML IV PRN (18:13)
[2025-02-18] MEDS ORDERED: diphenhydrAMINE 50 MG/ML VIAL IV PRN (18:13)
[2025-02-18] MEDS ORDERED: fentANYL 2 MCG/ML BUPIVacaine 0.125%-NSS 100ML BAG EPI PRN (18:13)
[2025-02-18] MEDS ORDERED: BUPIVACAINE 0.25% PF 30 ML VIAL EPI PRN (18:13)
[2025-02-18] MEDS ORDERED: SODIUM CHLORIDE 0.9% PF INJ 10 ML VIAL EPI PRN (18:13)
[2025-02-18] MEDS ORDERED: LIDOCAINE 2% MPF LOCAL 5 ML VIAL EPI PRN (18:13)
--- NOTE | 2025-02-18 18:13 | Anesthesiology Consultation ---
Date of Service February 18, 2025 Assessment & Plan (1) Encounter for pre-operative examination: Chart Review Chart Review: Patient NOT seen in Pre Admission Testing and Acceptable Risk for Labor Epidural Consults Requested none History Height/Weight Height: 5 ft 3 in Weight: 89.811 kg Allergies Allergy/AdvReac Type Severity Reaction Status Date / Time No Known Allergies Allergy Verified 02/18/25 08:13 Medications Home Medications Medication Instructions Recorded Confirmed Last Taken albuterol sulfate 90 mcg/actuation 1 inh inhalation QID PRN Asthma 10/31/19 02/18/25 02/18/25 02:00 aerosol inhaler (Ventolin HFA) budesonide 90 mcg/actuation breath 1 inh inhalation BID 10/31/19 02/18/25 02/17/25 09:00 activated powder inhaler famotidine 20 mg tablet (Pepcid) 20 mg PO DAILY 10/31/19 02/18/25 04/09/22 vit no.95-ferrous 1 tab PO DAILY 10/31/19 02/18/25 02/17/25 18:00 fumarate 28 mg-folic acid 800 mcg tablet () ferrous sulfate 325 mg (65 mg 325 mg PO DAILY 04/12/22 02/18/25 02/17/25 18:00 iron) tablet (Iron (ferrous sulfate)) sertraline 50 mg tablet (Zoloft) 50 mg PO DAILY 04/12/22 02/18/25 02/17/25 18:00 ibuprofen 600 mg tablet 600 mg PO Q6 #40 tabs 04/14/22 02/18/25 Unknown vits no.124-ferrous fum 1 tab PO DAILY #90 tabs 04/14/22 02/18/25 02/17/25 18:00 27 mg iron-folic acid 800 mcg tablet ( Vitamin) Active Medications Generic Name Dose Route Start Last Admin Trade Name Freq PRN Reason Stop Dose Admin Lactated Ringer's 1,000 mls @ 125 mls/hr 02/18/25 08:29 02/18/25 15:00 Lr IV 02/20/25 08:28 0 mls/hr .Q8H PRN Infusion L&D Protocol Protocol Past Medical History Medical History Anxiety and depression Zoloft 50mg Anemia Taking Iron Vitamin B 12 deficiency COVID January 2021 Polyhydramnios previous Fibromyalgia No medications and no problems with it. Patient denies RSV (respiratory syncytial virus infection) As a baby Asthma Use Albuterol and Plumicort Past Family History Family History Grandmother Breast cancer Leukemia Grandmother (Paternal) Breast cancer Past Surgical History Surgical History [place] teeth removed No history of previous surgery Social History Smoking Status: Never smoker Hx Alcohol Use: No Hx Substance Use: No substance use type: does not use Physical Exam Vital Signs Last Vital Signs Temp 98.6 F 02/18/25 08:26 Pulse 75 02/18/25 17:32 Resp 18 02/18/25 08:26 BP 119/72 02/18/25 17:32 Testing Laboratory Results 02/18/25 08:39
[2025-02-18] MEDS: BUPIVACAINE 0.25% PF 30 ML VIAL ONE (18:25)
[2025-02-18] MEDS: LIDOCAINE 2%/EPINEPHRINE 1:200,000 20 ML PF ONE (18:25)
[2025-02-18] MEDS: fentANYL 2 MCG/ML BUPIVacaine 0.125%-NSS 100ML BAG ONE (18:32)
[2025-02-18] MEDS: OXYTOCIN 30 UNITS/NSS 30 UNITS/500 ML BAG IV PRN (18:33)
[2025-02-18] MEDS: BUPIVACAINE 0.25% PF 30 ML VIAL EPI STA (18:44)
[2025-02-18] MEDS: SODIUM CHLORIDE 0.9% PF INJ 10 ML VIAL ONE (18:44)
[2025-02-18] MEDS: LIDOCAINE 2%/EPINEPHRINE 1:200,000 20 ML PF EPI STA (18:45)
[2025-02-18] MEDS: SODIUM CHLORIDE 0.9% PF INJ 10 ML VIAL EPI STA (18:45)
[2025-02-18] MEDS: CALCIUM CARBONATE 500 MG CHEWABLE TAB PO PRN (19:21)
[2025-02-18] MEDS: ONDANSETRON INJ 2 MG/ML 2 ML VIAL IV PRN (20:27)
[2025-02-18] MEDS ORDERED: HYDROCORTISONE ACETATE 25 MG SUPP PR PRN (22:58)
[2025-02-18] MEDS ORDERED: BENZOCAINE 20% SPRY 85 APPLN/85 GM CAN EXT PRN (22:58)
[2025-02-18] MEDS ORDERED: ACETAMINOPHEN W/CODEINE #3 1 TAB PO PRN (22:58)
--- NOTE | 2025-02-18 23:04 | Delivery Summary ---
Vaginal Delivery Summary Date of Service February 18, 2025 Vaginal Delivery Summary Patient is a 3 para 3 followed in the office for care and delivery. Well dated with a first trimester ultrasound. Brought in for induction at 40 weeks and 3 days gestation. Had a recent ultrasound to determine size. Has a history of macrosomia . Patient was brought in placed on the monitor given dose of p.o. Cytotec. This was followed by an second dose of p.o. Cytotec. 4 hours after second dose of p.o. Cytotec patient was 4+ centimeters. Switch then to IV Pitocin stimulation. Patient requested and received epidural for pain control. IV Pitocin running contractions were ti trated. Patient went to full dilatation and then under 30 minutes delivered a live female via direct occiput anterior position over an intact perineum. Infant was suctioned through the mouth and the nose. Shoulders were delivered without difficulty. Cord was allowed to pulse for 1 full minute. Cord was then clamped and cut. Cord blood was taken. With IV Pitocin running the placenta w as removed intact. IM Methergine was also given in the upper thigh to help control bleeding. Inspection of the perineum revealed a very superficial laceration of the introitus at 5:00. This laceration was repaired with a running 3-0 Chromic Gut suture. Following this vaginal exam revealed no sponges in the vagina. Hemostasis was good. Quantitative blood loss was 152 mL. Patient tolerated delivery well.
[2025-02-18] MEDS: METHYLERGONOVINE MALEATE 0.2 MG/ML AMP IM ONE (23:20)
--- NOTE | 2025-02-19 01:17 | Anesthesia Procedure Note ---
Date of Service February 19, 2025 Anesthesia Post Epidural Note Vital Signs Vital Signs: Temp Pulse Resp BP Pulse Ox 98.1 F 66 18 133/63 88 L 02/18/25 23:55 02/19/25 00:57 02/18/25 23:55 02/19/25 00:57 02/18/25 22:56 Notes Mental Status: alert / awake / arousable and participated in evaluation Nausea / Vomiting: adequately controlled Pain: adequately controlled Airway Patency, RR, SpO2: stable & adequate BP & HR: stable & adequate Hydration State: stable & adequate Neuraxial Anesthesia: was administered and sensory block is resolving Anesthetic Complications: no major complications apparent and Pt Satisfied with anesthetic care Epidural: Removed without complications and With tip intact
[2025-02-19] MEDS: IBUPROFEN 600 MG TAB PO PRN (05:21)
[2025-02-19 06:08] LABS: Hematocrit (blood only) 37.7 % (37.0-47.0); Hemoglobin 12.6 g/dl (12.0-16.0); Mean Corpuscular Hemoglobin 29.4 pg (25.0-34.0); Mean Corpuscular Volume 87.9 fL (80.0-100.0); Platelet Count 176 K/uL (130-400); RDW Standard Deviation 42.5 fL (36.4-46.3); Red Blood Count 4.29 M/uL (4.20-5.40); White Blood Count 9.83 K/ul (4.8-10.8)
[2025-02-19] MEDS: PRENATAL VITAMIN 1 TAB PO SCH (07:52)
[2025-02-19] MEDS: DOCUSATE SODIUM 100 MG CAP PO SCH (07:52)
[2025-02-19] MEDS ORDERED: Nursing to Pharmacy Communication SCH (08:15)
[2025-02-19] MEDS: DIPHTHER/TETAN/PERTUS Vaccine (Tdap, Adol/Adult) 0.5mL IM ONE ×2 (08:44→15:21)
--- NOTE | 2025-02-19 10:20 | Obstetrical Progress Note ---
Date of Service February 19, 2025 Assessment & Plan (1) Normal course: Post day #1 Vaginal delivery Pt doing well No complaints Stable vitals Stable labs. H/H: 12.6/37.7 Tolerating PO food and med Pt wishes to be discharged home Subjective Ambulation: ambulating normally Voiding: no voiding problems Passing Gas:: Yes Diet Tolerance:: regular diet Lochia:: Small Feeding Type:: breast feeding Review of Systems All systems reviewed & are unremarkable except as noted in HPI & below Physical Exam Constitutional WD/WN, vitals as above well developed and well nourished Eyes PERRL, conjunctivae normal, anicteric sclerae Neck trachea midline, no thyromegaly Respiratory normal respiratory effort, lungs clear to auscultation Auscultation: no crackles, no rales and no wheezes Cardiovascular RRR, no murmur, no edema Gastrointestinal (Abdomen) normal bowel sounds, soft, nontender, no hepatosplenomegaly Uterus is below umbilicus Musculoskeletal no cyanosis or clubbing, extremities motor strength 5/5 Skin no rashes, warm and dry Neurologic patellar DTR's 2+ bilat, sensation intact Psychiatric A+Ox3, euthymic affect Genitourinary normal external appearance Results & Data Vital Signs (Past 12 Hours) Vital Signs Temp Pulse Pulse Resp BP BP Pulse Ox 02/19/25 08:14 36.4 C L 83 18 106/68 98 02/19/25 02:33 36.5 C 96 H 18 127/71 96 02/19/25 00:57 66 133/63 02/19/25 00:42 93 H 134/63 02/19/25 00:27 89 117/56 L 02/19/25 00:13 93 H 128/62 02/18/25 23:57 94 H 02/18/25 23:57 136/79 02/18/25 23:55 18 02/18/25 23:55 36.7 C 18 02/18/25 23:40 96 H 02/18/25 23:40 123/56 L 02/18/25 23:24 153 H 02/18/25 23:24 108/52 L 02/18/25 23:09 126/55 L 02/18/25 22:56 88 L 02/18/25 22:56 92 H 02/18/25 22:55 20 02/18/25 22:55 36.8 C 20 02/18/25 22:55 85 L 02/18/25 22:55 102 H 02/18/25 22:54 97 H 02/18/25 22:54 137/62 02/18/25 22:51 87 L 02/18/25 22:51 96 H 02/18/25 22:50 98 02/18/25 22:50 94 H 02/18/25 22:45 96 02/18/25 22:45 105 H 02/18/25 22:45 79 L 02/18/25 22:45 100 H 02/18/25 22:39 129 H 02/18/25 22:39 134/84 02/18/25 22:36 80 L 02/18/25 22:36 129 H 02/18/25 22:32 80 L 02/18/25 22:32 125 H 02/18/25 22:31 97 02/18/25 22:31 127 H 02/18/25 22:30 22 02/18/25 22:30 22 02/18/25 22:26 89 L 02/18/25 22:26 114 H 02/18/25 22:25 99 02/18/25 22:25 106 H 02/18/25 22:24 90 02/18/25 22:24 137/88 02/18/25 22:20 98 02/18/25 22:20 119 H 02/18/25 22:20 88 L 02/18/25 22:20 106 H O2 Del Method 02/19/25 08:14 Room Air 02/19/25 02:33 Room Air 02/19/25 00:57 02/19/25 00:42 02/19/25 00:27 02/19/25 00:13 02/18/25 23:57 02/18/25 23:57 02/18/25 23:55 02/18/25 23:55 02/18/25 23:40 02/18/25 23:40 02/18/25 23:24 02/18/25 23:24 02/18/25 23:09 02/18/25 22:56 02/18/25 22:56 02/18/25 22:55 02/18/25 22:55 02/18/25 22:55 02/18/25 22:55 02/18/25 22:54 02/18/25 22:54 02/18/25 22:51 02/18/25 22:51 02/18/25 22:50 02/18/25 22:50 02/18/25 22:45 02/18/25 22:45 02/18/25 22:45 02/18/25 22:45 02/18/25 22:39 02/18/25 22:39 02/18/25 22:36 02/18/25 22:36 02/18/25 22:32 02/18/25 22:32 02/18/25 22:31 02/18/25 22:31 02/18/25 22:30 02/18/25 22:30 02/18/25 22:26 02/18/25 22:26 02/18/25 22:25 02/18/25 22:25 02/18/25 22:24 02/18/25 22:24 02/18/25 22:20 02/18/25 22:20 02/18/25 22:20 02/18/25 22:20
[2025-02-20 06:32] LABS: Hematocrit (blood only) 35.6 % (37.0-47.0); Hemoglobin 11.6 g/dl (12.0-16.0)
[2025-02-20 08:37] VITALS: BP 112/72; PULSE 69; RESP 16; TEMP 97.2; O2SAT 96
--- NOTE | 2025-02-20 09:17 | Obstetrical Progress Note ---
Date of Service February 20, 2025 Assessment & Plan Admission and Anticipated Discharge Date Admission Date: February 18, 2025 Subjective Patient is seen and examined. She feels well, no complaints. Ambulating without dizziness Voiding without difficulty Tolerating regular diet with out N&V Bleeding is minimal No fever/ chills/ CP/ SOB/ N&V/ Leg pain Breast feeding without problems Vital Signs Temp Pulse Resp BP Pulse Ox O2 Del Method 02/20/25 07:48 36.2 C L 69 16 112/72 96 Room Air 02/20/25 07:48 Room Air 02/19/25 23:40 36.4 C L 76 18 111/68 97 Room Air Lab Results 02/18/25 02/19/25 02/20/25 Range/Units 08:39 05:41 05:52 WBC 6.77 9.83 (4.8-10.8) K/ul RBC 3.99 L 4.29 (4.20-5.40) M/uL Hgb 11.9 L 12.6 11.6 L (12.0-16.0) g/dl Hct 34.8 L 37.7 35.6 L (37.0-47.0) % MCV 87.2 87.9 (80.0-100.0) fL MCH 29.8 29.4 (25.0-34.0) pg MCHC 34.2 33.4 (32.0-36.0) g/dL RDW Std Deviation 42.5 42.5 (36.4-46.3) fL RDW Coeff of [place] 13.3 13.3 (11.5-14.5) % Plt Count 190 176 (130-400) K/uL MPV 10.8 10.6 (9.4-12.4) fL Treponema pallidum Ab Negative (Negative) PE: General: Alert, orientedx3, NAD Abd: soft, NT, fundus firm, below Umbilicus Perineum intact, Lochia rubra minimal Ext; NT, no edema AP: 29 yo s/p , ppd# 2 VSS Afebrile doing well Continue routine care All questions were answered D/C home , f/u n offce Results & Data Vital Signs (Past 12 Hours) Vital Signs Temp Pulse Resp BP Pulse Ox O2 Del Method 02/20/25 07:48 36.2 C L 69 16 112/72 96 Room Air 02/20/25 07:48 Room Air 02/19/25 23:40 36.4 C L 76 18 111/68 97 Room Air
== END 2025-02-20 11:30 | disposition home or self-care (01) | DRG 807 ==
LOC: 4S1 07:48 → 4E2 02-19 01:57